=== PATIENT | female | born 1960 | race Caucasian/White ===

== ENCOUNTER → 2017-06-07 | Outpatient (CLI) | payer MEDICARE ==
[~2017-06-07] MED LIST: ACET500T68 PO; CLON0.5T3 PO; DOXY100C2 PO; DOXY100T PO; IOHEXOL 300 MG/ML 75 ML VIAL. IV ONE; IPRA3AMP NEB; KETO10TA PO; METH4TAB2 PO; ORPH-16 PO; OSEL30CA PO; PROM25TA10 PO; SERT20OR PO; SUMA50TA4 PO; TRAM50TA PO; ZOLP10TA PO
--- NOTE | 2017-06-07 16:02 | RAD ---
CTA of the chest with contrast, 06/07/2017: History: Shortness of breath, flu Multidetector CT imaging was performed following an IV bolus injection of iodinated contrast material. Multiplanar reconstructions were produced including coronal MIP images. The central pulmonary arteries are well opacified and no filling defects are seen to suggest pulmonary emboli. The thoracic aorta is of normal caliber. There are right hilar calcifications compatible with old granulomatous disease. No mediastinal adenopathy is seen. There are granulomatous calcifications in the right chest. There are additional linear calcifications in the right chest which appear to represent calcified pleural plaques. There is mild mosaic attenuation of the lungs. No dense pulmonary consolidation is seen. There is no evidence of pleural fluid. IMPRESSION: 1. No CT evidence of central pulmonary emboli. 2. Calcified pleural plaquing on the right. 3. Mild mosaic attenuation in the lungs which can be due to a variety of causes including groundglass opacities due to infection or hypersensitivity pneumonia, small airway disease such as bronchiolitis, or air-trapping due to asthma. Chronic thromboembolic pulmonary hypertension is a less likely possibility. PQRS Compliance Statement: One or more of the following individualized dose reduction techniques were utilized for this examination: 1. Automated exposure control 2. Adjustment of the mA and/or kV according to patient size 3. Use of iterative reconstruction technique
== END | disposition home or self-care (01) ==
LOC: CT 14:57
PROVIDERS: ATTEND Physician Assistant
DX: J45.909 Unspecified asthma, uncomplicated (principal); J18.9 Pneumonia, unspecified organism; J21.9 Acute bronchiolitis, unspecified
CPT/HCPCS: 71275; Q9967

== ENCOUNTER 2017-06-10 12:57 | Inpatient (IN) | payer MEDICARE ==
[~2017-06-10] VITALS: Ht 152.4 cm; Wt 65.0 kg
[2017-06-10 00:31] VITALS: BP 127/87
[2017-06-10] MEDS ORDERED: ACETAMINOPHEN 500 MG TABLET PO PRN (13:15)
[2017-06-10 13:53] LABS: BASO # 0.1 x10^3/uL (0.0-0.2); BASO % 1 % (0-3); EOS # 0.1 x10^3/uL (0.0-0.7); EOS % 1 % (0-3); HEMATOCRIT 38.3 % (36.0-47.0); HEMOGLOBIN 13.3 g/dL (12.0-15.5); LYMPH # 2.7 x10^3/uL (1.0-4.8); LYMPH % 39 % (24-48); MEAN CORPUSCULAR HEMOGLOBIN 32 pg (25-35); MEAN CORPUSCULAR HGB CONC 35 g/dL (31-37); MEAN CORPUSCULAR VOLUME 92 fL (79-100); MONO # 0.5 x10^3/uL (0.0-1.1); MONO % 7 % (0-9); NEUT # 3.7 x10^3uL (1.8-7.7); NEUT % 52 % (31-73); PLATELET COUNT 214 x10^3/uL (140-400); RED BLOOD COUNT 4.16 x10^6/uL (3.50-5.40); RED CELL DISTRIBUTION WIDTH 12.4 % (11.5-14.5)
[2017-06-10 13:55] VITALS: BP 122/82
[2017-06-10 14:16] LABS: ALBUMIN 3.7 g/dL (3.4-5.0); ALBUMIN/GLOBULIN RATIO 1.1 (1.0-1.7); CALCIUM 9.2 mg/dL (8.5-10.1); CREATININE 0.8 mg/dL (0.6-1.0); GFR 74.5; TOTAL BILIRUBIN 0.3 mg/dL (0.2-1.0); TOTAL PROTEIN 7.2 g/dL (6.4-8.2)
[2017-06-10] MEDS: IV NORMAL SALINE 1,000ML 1,000 ML IV SCH ×2 (14:42→23:23)
--- NOTE | 2017-06-10 14:47 | RAD ---
2 views of the Chest 06/10/2017 3:11 PM Indication: shortness of breath Comparison: CT angiography of the chest, 06/07/2017 Findings: Surgical staple line noted in the right upper lobe. Smaller stable line noted in the right lower lobe. Calcified granuloma in the right lower lobe is stable. No new or acute appearing infiltrate is appreciated. Heart size is normal. No acute osseous changes are identified. Impression: Stable appearance of the chest without evidence of acute cardiopulmonary process
[2017-06-10 14:54] LABS: BILIRUBIN,URINE NEG (NEG); CLARITY,URINE CLEAR; COLOR,URINE YELLOW; GLUCOSE,URINE NEG (NEG); NITRITE,URINE NEG (NEG); UROBILINOGEN,URINE 0.2 mg/dL (0.2 mg/dL)
[2017-06-10 14:55] LABS: BACTERIA,URINE 0 /HPF (0-FEW); RBC,URINE 0 /HPF (0-2); SQUAMOUS EPITHELIAL CELL,UR OCC /LPF; WBC,URINE OCC /HPF (0-4)
[2017-06-10 14:57] LABS: SEDIMENTATION RATE 12 (0-25)
[2017-06-10 15:18] LABS: INFLUENZA A PATIENT NEGATIVE (NEGATIVE); INFLUENZA B PATIENT NEGATIVE (NEGATIVE)
[2017-06-10] MEDS ORDERED: CLON0.5T3 PO (15:48)
[2017-06-10] MEDS ORDERED: ZOLP10TA PO (15:48)
[2017-06-10] MEDS ORDERED: ACET500T68 PO (15:48)
[2017-06-10] MEDS ORDERED: DOXY100T PO (15:48)
[2017-06-10] MEDS ORDERED: SERT20OR PO (15:48)
[2017-06-10] MEDS: IPRATRPIUM/ALBUTEROL 0.5/2.5MG 3 ML NEBU. NEB SCH ×2 (16:00→21:15)
[2017-06-10 16:02] VITALS: BP 107/72
[2017-06-10] MEDS: SUMAtriptan SUCCINATE 50 MG TABLET PO PRN (18:57)
[2017-06-10 19:18] VITALS: BP 119/75
[2017-06-10] MEDS: ZOLPIDEM 5 MG TABLET. PO SCH (20:23)
[2017-06-10] MEDS: DOXYCYCLINE HYCLATE 100 MG TABLET PO SCH (20:24)
[2017-06-10] MEDS: clonazePAM 0.5 MG TABLET PO SCH (20:24)
[2017-06-10] MEDS: LACTOBACILLUS RHAMNOSUS GG 1 CAPSULE. PO SCH (20:24)
[2017-06-11 00:32] VITALS: BP 127/87
[2017-06-11] MEDS: IPRATRPIUM/ALBUTEROL 0.5/2.5MG 3 ML NEBU. NEB SCH ×4 (05:19→20:00)
[2017-06-11 05:58] VITALS: BP 124/83
[2017-06-11 06:38] LABS: BASO % 1 % (0-3); EOS # 0.1 x10^3/uL (0.0-0.7); EOS % 1 % (0-3); HEMATOCRIT 33.9 % (36.0-47.0); HEMOGLOBIN 11.9 g/dL (12.0-15.5); LYMPH # 2.8 x10^3/uL (1.0-4.8); LYMPH % 45 % (24-48); MEAN CORPUSCULAR HEMOGLOBIN 33 pg (25-35); MEAN CORPUSCULAR HGB CONC 35 g/dL (31-37); MEAN CORPUSCULAR VOLUME 93 fL (79-100); MONO # 0.5 x10^3/uL (0.0-1.1); MONO % 8 % (0-9); NEUT # 2.9 x10^3uL (1.8-7.7); NEUT % 46 % (31-73); PLATELET COUNT 161 x10^3/uL (140-400); RED BLOOD COUNT 3.63 x10^6/uL (3.50-5.40); RED CELL DISTRIBUTION WIDTH 12.5 % (11.5-14.5); WHITE BLOOD COUNT 6.3 x10^3/uL (4.0-11.0)
[2017-06-11 06:44] LABS: CALCIUM 8.8 mg/dL (8.5-10.1); CREATININE 0.8 mg/dL (0.6-1.0); GFR 74.5; POTASSIUM 3.8 mmol/L (3.5-5.1)
[2017-06-11] MEDS: DOXYCYCLINE HYCLATE 100 MG TABLET PO SCH ×2 (08:03→19:22)
[2017-06-11] MEDS: LACTOBACILLUS RHAMNOSUS GG 1 CAPSULE. PO SCH ×2 (08:03→19:24)
[2017-06-11] MEDS: clonazePAM 0.5 MG TABLET PO SCH ×2 (08:04→19:22)
[2017-06-11] MEDS: IV NORMAL SALINE 1,000ML 1,000 ML IV SCH ×2 (08:05→21:19)
[2017-06-11] MEDS: SERTRALINE 100 MG TABLET. PO SCH (08:06)
[2017-06-11] MEDS ORDERED: PNEUMOC CONJ VACC 23-VALENT 0.5 ML VIAL. VAX IM ONE (09:00)
[2017-06-11 11:01] VITALS: BP 109/70
[2017-06-11] MEDS ORDERED: IOHEXOL 300 MG/ML 75 ML VIAL. IV ONE (14:00)
[2017-06-11 15:00] VITALS: BP 125/73
[2017-06-11] MEDS: traMADol 50 MG TABLET PO PRN (16:54)
--- NOTE | 2017-06-11 17:04 | RAD ---
CT pulmonary angiogram with intravenous contrast History: Shortness air, cough Comparison: None. Technique: CT angiogram of the chest with attention to the pulmonary arteries was performed after the administration of intravenous contrast, 70 mL Omnipaque-300. Axial 2-D reconstructions were obtained. Coronal 3-D MIPS were obtained of the chest. Exposure: One or more of the following individualized dose reduction techniques were utilized for this examination: 1. Automated exposure control 2. Adjustment of the mA and/or kV according to patient size 3. Use of iterative reconstruction technique Findings: Pulmonary arteries are adequately opacified. There is no evidence of proximal segmental or larger pulmonary embolism. Trachea and mainstem bronchi appear patent. Visualized thyroid appears symmetric. No acute airspace disease is identified. No pneumothorax or pleural effusion is seen. No mediastinal lymphadenopathy is seen. Thoracic aorta has normal caliber. Heart and pericardium are unremarkable. Old granulomatous disease of the chest is seen. There is suture material involving the right lung, compatible with previous wedge resections. Impression: 1. No evidence of pulmonary embolism. No acute abnormality identified in the chest. Electronically signed by: Raul Bower MD (06/11/2017 5:01 PM) [place] [id number]
[2017-06-11] MEDS: ZOLPIDEM 5 MG TABLET. PO SCH (19:22)
[2017-06-11 19:23] VITALS: BP 127/85
[2017-06-11] MEDS: OSELTAMIVIR 30 MG CAPSULE PO SCH (19:25)
[2017-06-11] MEDS: SUMAtriptan SUCCINATE 50 MG TABLET PO PRN (21:19)
[2017-06-11] MEDS: ACETAMINOPHEN 500 MG TABLET PO PRN (21:20)
[2017-06-11 22:40] VITALS: BP 109/73
[2017-06-12 03:00] VITALS: BP 117/75
[2017-06-12] MEDS: IPRATRPIUM/ALBUTEROL 0.5/2.5MG 3 ML NEBU. NEB SCH ×4 (05:15→20:00)
--- NOTE | 2017-06-12 05:57 | PN ---
DATE: SUBJECTIVE: A 57-year-old female in with acute shortness of breath, bronchospasm and the like. The patient says she is feeling a little bit better. Apparently has a diagnosis of sarcoid and needs to be evaluated further. She did have a positive D-dimer. CTA is pending on that. The patient otherwise is achy, although her screens have been negative here. It is quite possible because of her achiness and she says she has chills, she does have some type of flu, but she does not tolerate Tamiflu very well, so we are going to go ahead and just give her a small dose of it to see if she tolerates that. PHYSICAL EXAMINATION: VITAL SIGNS: Remain stable 110/70, respiratory rate 20, pulse 80, afebrile. GENERAL: The patient is alert and oriented. LUNGS: Diminished throughout, poor movement of air. Lungs are diminished with cough and bronchospasm. CARDIOVASCULAR: Regular sinus rhythm, S1, S2. ABDOMEN: Soft, nontender. EXTREMITIES: No clubbing, cyanosis, no edema. NEUROLOGIC: Intact. IMPRESSION: Acute respiratory distress, acute bronchospasm, sarcoid. FARHAN CLEMENTS MD DR: GREG/dianna JOB#: [id number] / [id number]
[2017-06-12 07:06] VITALS: BP 117/75
[2017-06-12] MEDS: IV NORMAL SALINE 1,000ML 1,000 ML IV SCH ×2 (07:14→15:30)
[2017-06-12] MEDS: methylPREDNISolone SOD SUCC PF 40 MG/ML VIAL. IV SCH (09:00)
[2017-06-12] MEDS: OSELTAMIVIR 30 MG CAPSULE PO SCH ×2 (09:00→20:43)
[2017-06-12] MEDS: LACTOBACILLUS RHAMNOSUS GG 1 CAPSULE. PO SCH ×2 (09:00→20:43)
[2017-06-12] MEDS: SERTRALINE 100 MG TABLET. PO SCH (09:00)
[2017-06-12] MEDS: DOXYCYCLINE HYCLATE 100 MG TABLET PO SCH ×2 (09:00→20:03)
[2017-06-12] MEDS: clonazePAM 0.5 MG TABLET PO SCH ×2 (09:00→20:04)
[2017-06-12] MEDS: SUMAtriptan SUCCINATE 50 MG TABLET PO PRN ×3 (10:06→16:06)
[2017-06-12 11:06] VITALS: BP 124/79
[2017-06-12] MEDS ORDERED: BISMUTH SUBSALICYLATE 262 MG/15 ML ORAL.SUSP 236ML BOTTLE. PO PRN (14:30)
[2017-06-12] MEDS: traMADol 50 MG TABLET PO PRN (17:19)
[2017-06-12] MEDS ORDERED: ORPHENADRINE CITRATE 60 MG/2 ML VIAL. IM ONE (19:15)
[2017-06-12] MEDS ORDERED: KETOROLAC 60 MG/2 ML VIAL. IM ONE (19:15)
[2017-06-12] MEDS ORDERED: ONDANSETRON PF 4 MG/2 ML VIAL. ONE (19:32)
[2017-06-12 19:58] VITALS: BP 135/87
[2017-06-12] MEDS: ZOLPIDEM 5 MG TABLET. PO SCH (20:03)
[2017-06-12] MEDS ORDERED: ONDANSETRON PF 4 MG/2 ML VIAL. IV PRN (21:45)
--- NOTE | 2017-06-12 23:09 | PN ---
DATE: SUBJECTIVE: A 57-year-old female in with the acute exacerbation, acute respiratory distress, bronchospasm and sarcoid. The patient's CTA was unremarkable. The patient still says she is not feeling as well she has. Continue with the IV prednisone, aggressive pulmonary toilet. Make further evaluation on her as indicated, but otherwise, she does seem to be making fairly good progress. PHYSICAL EXAMINATION: VITAL SIGNS: Blood pressure 120/80, respiratory 20, pulse 90, afebrile. GENERAL: The patient is alert and oriented. LUNGS: Diminished, but clear. CARDIOVASCULAR: Regular sinus rhythm, S1, S2. ABDOMEN: Soft, nontender. IMPRESSION: Acute exacerbation of asthma, acute respiratory failure. PLAN: As above. FARHAN CLEMENTS MD DR: GREG/dianna JOB#: [id number] / [id number]
[2017-06-12 23:44] VITALS: BP 102/70
[2017-06-13] MEDS: IV NORMAL SALINE 1,000ML 1,000 ML IV SCH ×2 (01:30→11:30)
[2017-06-13] MEDS: SUMAtriptan SUCCINATE 50 MG TABLET PO PRN ×3 (03:17→12:30)
[2017-06-13] MEDS: IPRATRPIUM/ALBUTEROL 0.5/2.5MG 3 ML NEBU. NEB SCH ×2 (05:50→10:42)
[2017-06-13 06:08] VITALS: BP 114/73
[2017-06-13 06:31] LABS: BASO % 1 % (0-3); EOS # 0.2 x10^3/uL (0.0-0.7); EOS % 3 % (0-3); HEMATOCRIT 36.3 % (36.0-47.0); HEMOGLOBIN 12.5 g/dL (12.0-15.5); LYMPH # 2.8 x10^3/uL (1.0-4.8); LYMPH % 40 % (24-48); MEAN CORPUSCULAR HEMOGLOBIN 32 pg (25-35); MEAN CORPUSCULAR HGB CONC 35 g/dL (31-37); MEAN CORPUSCULAR VOLUME 93 fL (79-100); MONO # 0.5 x10^3/uL (0.0-1.1); MONO % 7 % (0-9); NEUT # 3.4 x10^3uL (1.8-7.7); NEUT % 49 % (31-73); PLATELET COUNT 182 x10^3/uL (140-400); RED BLOOD COUNT 3.89 x10^6/uL (3.50-5.40); RED CELL DISTRIBUTION WIDTH 12.5 % (11.5-14.5); WHITE BLOOD COUNT 6.9 x10^3/uL (4.0-11.0)
[2017-06-13 06:49] LABS: ALBUMIN 3.2 g/dL (3.4-5.0); CALCIUM 8.8 mg/dL (8.5-10.1); CREATININE 0.8 mg/dL (0.6-1.0); GFR 74.5; TOTAL BILIRUBIN 0.5 mg/dL (0.2-1.0); TOTAL PROTEIN 6.5 g/dL (6.4-8.2)
[2017-06-13] MEDS: methylPREDNISolone SOD SUCC PF 40 MG/ML VIAL. IV SCH (09:00)
[2017-06-13] MEDS: OSELTAMIVIR 30 MG CAPSULE PO SCH (09:00)
[2017-06-13] MEDS: SERTRALINE 100 MG TABLET. PO SCH (09:35)
[2017-06-13] MEDS: LACTOBACILLUS RHAMNOSUS GG 1 CAPSULE. PO SCH (09:35)
[2017-06-13] MEDS: clonazePAM 0.5 MG TABLET PO SCH (09:35)
[2017-06-13] MEDS: DOXYCYCLINE HYCLATE 100 MG TABLET PO SCH (09:35)
[2017-06-13 10:47] VITALS: BP 124/79
[2017-06-13] MEDS ORDERED: SUMA50TA4 PO (11:38)
[2017-06-13] MEDS ORDERED: IPRA3AMP NEB (11:38)
[2017-06-13] MEDS ORDERED: PROM25TA10 PO (11:38)
[2017-06-13] MEDS ORDERED: OSEL30CA PO (11:38)
[2017-06-13] MEDS ORDERED: DOXY100C2 PO (11:38)
[2017-06-13] MEDS ORDERED: ORPH-16 PO (11:38)
[2017-06-13] MEDS ORDERED: KETO10TA PO (11:38)
[2017-06-13] MEDS ORDERED: TRAM50TA PO (11:38)
[2017-06-13] MEDS: ACETAMINOPHEN 500 MG TABLET PO PRN (12:35)
[2017-06-13] MEDS ORDERED: levoFLOXacin 750 MG TABLET PO SCH (14:00)
[2017-06-13 15:01] VITALS: BP 128/84
[2017-06-13] MEDS ORDERED: METH4TAB2 PO (15:13)
== END 2017-06-13 15:50 | disposition home or self-care (01) | DRG 189 ==
LOC: 1 SOUTH 12:57
PROVIDERS: ADMIT Family Medicine; ATTEND Family Medicine
DX: J96.00 Acute respiratory failure, unspecified whether with hypoxia or hypercapnia (principal); J45.901 Unspecified asthma with (acute) exacerbation; D86.9 Sarcoidosis, unspecified
CPT/HCPCS: 36415; 71046; 71275; 80048; 80053; 81001; 82550; 83605; 83880; 84484; 85025; 85379; 85651; 87040; 87086; 87804; 90732; 94640; J1885; J1956; J2360; J2405; J2920; J7620; Q9967; J7030

== ENCOUNTER 2018-09-18 16:49 | Observation (INO) | payer MEDICARE ==
[~2018-09-18] VITALS: Ht 152.4 cm; Wt 67.9 kg
[~2018-09-18 16:49] MED LIST changes: +CLON0.5T11 PO; -CLON0.5T3 PO; -IOHEXOL 300 MG/ML 75 ML VIAL. IV ONE; -IPRA3AMP NEB; +IPRA3AMP29 NEB; +SERT100T PO; -SERT20OR PO
[2018-09-18 17:21] VITALS: BP 115/78
[2018-09-18] MEDS ORDERED: ZOLP5TAB5 PO (17:55)
[2018-09-18] MEDS ORDERED: ASPIRIN 81 MG TAB.CHEW PO ONE (18:30)
[2018-09-18] MEDS ORDERED: CYCL5TAB PO (19:04)
[2018-09-18 19:39] LABS: BASO # 0.1 x10^3/uL (0.0-0.2); BASO % 1 % (0-3); EOS # 0.2 x10^3/uL (0.0-0.7); EOS % 2 % (0-3); HEMATOCRIT 38.6 % (36.0-47.0); HEMOGLOBIN 13.5 g/dL (12.0-15.5); LYMPH # 2.6 x10^3/uL (1.0-4.8); LYMPH % 31 % (24-48); MEAN CORPUSCULAR HEMOGLOBIN 33 pg (25-35); MEAN CORPUSCULAR HGB CONC 35 g/dL (31-37); MEAN CORPUSCULAR VOLUME 93 fL (79-100); MONO # 0.5 x10^3/uL (0.0-1.1); MONO % 6 % (0-9); NEUT % 60 % (31-73); PLATELET COUNT 208 x10^3/uL (140-400); RED BLOOD COUNT 4.15 x10^6/uL (3.50-5.40); RED CELL DISTRIBUTION WIDTH 12.8 % (11.5-14.5); WHITE BLOOD COUNT 8.2 x10^3/uL (4.0-11.0)
[2018-09-18 19:53] LABS: ALBUMIN 3.4 g/dL (3.4-5.0); ALBUMIN/GLOBULIN RATIO 0.9 (1.0-1.7); CALCIUM 9.3 mg/dL (8.5-10.1); GFR 57.4; POTASSIUM 3.7 mmol/L (3.5-5.1); TOTAL BILIRUBIN 0.4 mg/dL (0.2-1.0); TOTAL PROTEIN 7.2 g/dL (6.4-8.2)
[2018-09-18] MEDS ORDERED: CYCLOBENZAPRINE 10 MG TABLET. PO PRN (20:15)
[2018-09-18] MEDS: clonazePAM 0.5 MG TABLET PO SCH (20:56)
[2018-09-18] MEDS: ACETAMINOPHEN 500 MG TABLET PO PRN (20:56)
[2018-09-18] MEDS: ZOLPIDEM 5 MG TABLET. PO SCH (20:56)
[2018-09-19 00:27] VITALS: BP 96/62
[2018-09-19 06:16] VITALS: BP 93/65
[2018-09-19] MEDS: ACETAMINOPHEN 500 MG TABLET PO PRN ×2 (10:29→17:41)
[2018-09-19] MEDS: SERTRALINE 100 MG TABLET. PO SCH (10:29)
[2018-09-19 10:34] VITALS: BP 111/73
[2018-09-19] MEDS ORDERED: NITROGLYCERIN SUBLINGUAL 0.4 MG BOTTLE OF 25. SL PRN (18:30)
[2018-09-19 19:15] VITALS: BP 102/70
[2018-09-19] MEDS: ZOLPIDEM 5 MG TABLET. PO SCH (23:06)
[2018-09-19] MEDS: clonazePAM 0.5 MG TABLET PO SCH (23:07)
[2018-09-19 23:15] VITALS: BP 117/80
[2018-09-20 05:25] VITALS: BP 106/70
[2018-09-20] MEDS: SERTRALINE 100 MG TABLET. PO SCH (08:47)
== END 2018-09-20 09:42 | disposition home or self-care (01) ==
LOC: 1 SOUTH 16:59 → INTOOBSV 16:59
PROVIDERS: ADMIT Family Medicine; ATTEND Family Medicine
DX: R07.89 Other chest pain (principal); D86.0 Sarcoidosis of lung; M54.6 Pain in thoracic spine; Z91.012 Allergy to eggs; Z88.2 Allergy status to sulfonamides; Z88.8 Allergy status to other drugs, medicaments and biological substances
CPT/HCPCS: 36415; 80053; 82550; 84484; 85025; 85379; G0378; G0379

== ENCOUNTER 2021-06-22 16:18 | Emergency (ER) | payer MEDICARE ==
[~2021-06-22] VITALS: Ht 152.4 cm; Wt 82.0 kg
[~2021-06-22 16:18] MED LIST changes: -CLON0.5T11 PO; +CLON0.5T4 PO; +CYCL5TAB PO; -DOXY100C2 PO; +DOXY100C3 PO; +ZOLP5TAB5 PO
[2021-06-22 16:46] VITALS: BP 106/70
--- NOTE | 2021-06-22 17:10 | PHYS DOC ---
Past History Additional Past Medical Histor: sarcoidosis Past Surgical History: No Surgical History Alcohol Use: None General Adult EDM: Chief Complaint: INSECT BITE HPI: HPI: Patient is a 61 year old female who presents with bee sting to her neck. Patient states the skin surrounding the bite became red and irritated. She also got a feeling of "goosebumps" and began to cry uncontrollably. Patient states that her friend removed the stinger from the bee sting. In the past, she states that her reactions to bee stings have been "pretty bad." Patient has not taken any medication including Benadryl since being stung. Patient denies dyspnea, shortness of breath, cough, oral/facial swelling, abdominal pain, nausea/vomiting. Review of Systems: Review of Systems: Constitutional: Denies fever, chills or generalized weakness Eyes: Denies change in visual acuity, visual field deficits or discharge HENT: Denies ear pain, nasal congestion or sore throat Respiratory: Denies cough or shortness of breath Cardiovascular: Denies chest pain, palpitations or edema GI: Denies abdominal pain, nausea, vomiting, bloody stools or diarrhea : Denies dysuria or hematuria Musculoskeletal: Denies back pain or joint pain Integument: See HPI Neurologic: Denies headache, focal weakness or sensory changes Allergies: Allergies: Allergies Coded Allergies Type Severity Reaction Last Updated Verified Sulfa (Sulfonamide Antibiotics) Allergy Intermediate 06/11/17 Yes codeine Allergy Intermediate 06/11/17 Yes egg Allergy Intermediate 06/11/17 Yes Physical Exam: PE: Constitutional: Well developed, well nourished, patient appears anxious, non- toxic appearance. HENT: Normocephalic, atraumatic, bilateral external ears normal, oropharynx moist, no oral exudates, no oropharyngeal swelling appreciated, no macroglossia, nose normal. Eyes: EOMI, conjunctiva normal, no discharge. Neck: Normal range of motion, no tenderness, supple, no stridor. Cardiovascular: Elevated heart rate with regular rhythm. Lungs & Thorax: Bilateral breath sounds clear to auscultation. Skin: Anterior neck has a circular, erythematous lesion with punctate central wound, well-circumscribed margins. Skin otherwise warm, dry, no erythema, no rash. Extremities: No tenderness, no cyanosis, no clubbing, ROM intact, no edema. Neurologic: Alert and oriented x4, no focal deficits noted. Current Patient Data: Vital Signs: Vital Signs Date Time Temp Pulse Resp B/P (MAP) Pulse Ox O2 Delivery O2 Flow Rate FiO2 06/22/21 16:46 98.3 109 18 106/70 (82) 94 Room Air Heart Score: C/O Chest Pain: No Course & Med Decision Making: Course & Med Decision Making Pertinent Labs and Imaging studies reviewed. (See chart for details) Patient is a 61-year-old female who presents to the emergency department after bee sting. Patient does not have any symptoms of anaphylaxis or other allergic reaction. The skin surrounding the wound is slightly irritated. Patient is instructed to take Benadryl and apply ice packs until the local reaction symptoms resolve. Patient questions were answered. She understands and is agreeable to discharge plan. Dragon Disclaimer: Dragon Disclaimer: This electronic medical record was generated, in whole or in part, using a voice recognition dictation system. Departure Departure: Impression: Primary Impression: Local reaction to bee sting Qualified Codes: T63.441A - Toxic effect of venom of bees, accidental (un intentional), initial encounter Disposition: HOME / SELF CARE / HOMELESS Condition: STABLE Referrals: PCP,NO (PCP) Patient Instructions: Bee, Wasp, or Hornet Sting Additional Instructions: EMERGENCY DEPARTMENT GENERAL DISCHARGE INSTRUCTIONS Thank you for coming to [facility] (ED) today and trusting us with you care. We trust that you had a positive experience in our Emergency Department. If you wish to speak to the department management, you may call the director at [phone]. YOUR FOLLOW UP INSTRUCTIONS ARE FOLLOWS: 1. Follow up with your primary care doctor. If you do not have a primary doctor, please ask for a resource list of physicians or clinics that may be able to assist you with follow up care. 2. The emergency provider has interpreted your imaging studies, if any were ordered. The radiology supervisory investigative specialist also reviewed them. If there is a change in the findings, you will be notified in 48 hours when at all possible. 3. If a lab test or culture has been done, your results will be reviewed and you will be notified if you need a change in treatment. 4. Follow instructions verbalized to you and refer to the printouts if needed. ADDITIONAL INSTRUCTIONS AND INFORMATION: 1. Your care today has been supervised by a physician who is specially trained in emergency care. Many problems require more than one evaluation for a complete diagnosis and treatment. We recommend that you schedule your follow up appointment as recommended to ensure complete treatment of you illness or injury . If you are unable to obtain follow up care and continue to have a problem, or if your condition worsens, we recommend that you return to the ED. 2. We are not able to safely determine your condition over the phone nor are we able to give sound medical advice over the phone. For these safety reasons, if you call for medical advice we will ask you to come to the ED for further e valuation. 3. If you have any questions regarding these discharge instructions please call the ED at [phone]. SAFETY INFORMATION: In the interest of safety, wellness, and injury prevention; we encourage you to wear your seat belt, if you smoke; quite smoking, and we encourage family to use a protective helmet for bicycling and other sporting events that present an increased risk for head injury. IF YOUR SYMPTOMS WORSEN OR NEW SYMPTOMS DEVELOP, OR YOU HAVE CONCERNS ABOUT YOUR CONDITION; OR IF YOUR CONDITION WORSENS WHILE YOU ARE WAITING FOR YOUR FOLLOW UP APPOINTMENT; EITHER CONTACT YOUR PRIMARY CARE DOCTOR, THE PHYSICIAN WHOSE NAME AND NUMBER YOU WERE GIVEN, OR RETURN TO THE ED IMMEDIATELY. KANU RAYMOND Jun 22, 2021 17:10
== END 2021-06-22 17:14 | disposition home or self-care (01) ==
LOC: ER 16:18
DX: T63.441A Toxic effect of venom of bees, accidental (unintentional), initial encounter (principal); L08.9 Local infection of the skin and subcutaneous tissue, unspecified; Z88.2 Allergy status to sulfonamides; Z88.5 Allergy status to narcotic agent; Z91.012 Allergy to eggs; Y92.89 Other specified places as the place of occurrence of the external cause
CPT/HCPCS: 99282